=== PATIENT | female | born 1940 | race Caucasian/White ===

== ENCOUNTER → 2018-02-12 | Outpatient (CLI) | payer OTHER | LOC: M.RAD 09:41 | DX: R92.8 Other abnormal and inconclusive findings on diagnostic imaging of breast (principal); C50.312 Malignant neoplasm of lower-inner quadrant of left female breast; Z85.3 Personal history of malignant neoplasm of breast; Z17.0 Estrogen receptor positive status [ER+] ==

== ENCOUNTER → 2018-08-15 | Outpatient (CLI) | payer OTHER | LOC: M.RAD 08:42 | DX: C50.312 Malignant neoplasm of lower-inner quadrant of left female breast (principal); Z17.0 Estrogen receptor positive status [ER+] ==

== ENCOUNTER → 2019-02-14 | Outpatient (CLI) | payer OTHER | LOC: M.RAD 10:25 | DX: R92.2 Inconclusive mammogram (principal); Z85.3 Personal history of malignant neoplasm of breast ==

== ENCOUNTER → 2020-02-17 | Outpatient (CLI) | payer OTHER | LOC: M.RAD 10:30 | PROVIDERS: ATTEND Radiology Radiation Oncology | DX: C50.312 Malignant neoplasm of lower-inner quadrant of left female breast (principal); Z17.0 Estrogen receptor positive status [ER+] ==

== ENCOUNTER → 2021-02-17 | Outpatient (CLI) | payer OTHER | LOC: M.RAD 10:52 | PROVIDERS: ATTEND Radiology Radiation Oncology | DX: Z12.31 Encounter for screening mammogram for malignant neoplasm of breast (principal) ==

== ENCOUNTER 2021-04-01 17:57 | Emergency (ER) | payer OTHER ==
[~2021-04-01] VITALS: Ht 165.1 cm; Wt 81.7 kg
[2021-04-01] MEDS ORDERED: LISINOPRIL20 MG PO (18:06)
[2021-04-01] MEDS ORDERED: LIPITOR 20 MG T20 M1 PO (18:07)
[2021-04-01 18:28] VITALS: BP 168/70
== END 2021-04-01 18:29 | disposition home or self-care (01) ==
LOC: M.ERS 17:57
DX: S61.011A Laceration without foreign body of right thumb without damage to nail, initial encounter (principal); Z79.899 Other long term (current) drug therapy; W26.0XXA Contact with knife, initial encounter; Y93.89 Activity, other specified; Y92.89 Other specified places as the place of occurrence of the external cause; Y99.8 Other external cause status